=== PATIENT | male | born 1960 | race Caucasian/White ===

== ENCOUNTER → 2023-02-18 11:39 | Outpatient (CLI) | payer BC, SELFPAY ==
--- NOTE | ~2023-02-18 | XR_ITS ---
XR chest 2V DATE: 02/18/2023 11:59 INDICATION: Other specified symptoms and signs involving the chest TECHNIQUE: 2 views COMPARISON: None FINDINGS: Heart size is within normal range. Minimal aortic unfolding. No hilar or mediastinal enlarg ement is evident. No pulmonary infiltrate or consolidation, pleural effusion or pulmonary vascular congestion or pneumo thorax. IMPRESSION: No active cardiopulmonary disease Reviewed, dictated and finalized at location A.
== END ==
PROVIDERS: PCP Physician Assistant; Visit Provider Physician Assistant
DX: R09.89 Other specified symptoms and signs involving the circulatory and respiratory systems (principal)
CPT/HCPCS: 71046